=== PATIENT | male | born 1970 | race Caucasian/White ===

== ENCOUNTER 2018-06-06 12:06 | Emergency (ER) | payer MEDICAID ==
[~2018-06-06] VITALS: Ht 190.5 cm; Wt 87.0 kg
[2018-06-06 12:11] VITALS: BP 126/88
[2018-06-06] MEDS ORDERED: ibuprofen tablet 400 MG TABLET PO ONE (13:05)
[2018-06-06] MEDS ORDERED: ACET-3067 PO (13:34)
== END 2018-06-06 13:50 | disposition home or self-care (01) ==
LOC: ER 12:07
DX: M25.512 Pain in left shoulder (principal)
CPT/HCPCS: 73030; 99284; A4565

== ENCOUNTER 2018-06-23 13:30 | Outpatient (CLI) | payer MEDICAID ==
[2018-06-23 13:11] VITALS: BP 116/73
[~2018-06-23 13:30] MED LIST: ACET-3067 PO
== END 2018-06-23 13:39 | disposition home or self-care (01) ==
LOC: ORTHO 13:30
PROVIDERS: ATTEND Nurse Practitioner Family
DX: M75.02 Adhesive capsulitis of left shoulder (principal); F17.210 Nicotine dependence, cigarettes, uncomplicated
CPT/HCPCS: 99213

== ENCOUNTER 2018-07-14 13:37 | Outpatient (CLI) | payer MEDICAID ==
[2018-07-14 13:36] VITALS: BP 131/74
== END 2018-07-14 14:45 | disposition home or self-care (01) ==
LOC: ORTHO 13:37
PROVIDERS: ATTEND Nurse Practitioner Family
DX: M75.02 Adhesive capsulitis of left shoulder (principal); F17.210 Nicotine dependence, cigarettes, uncomplicated; Z60.2 Problems related to living alone
CPT/HCPCS: 99213